=== PATIENT | female | born 1985 ===

== ENCOUNTER → 2020-11-23 | Outpatient (CLI) | payer OTHER | END | disposition home or self-care (01) | LOC: PRENATAL 09:00 | PROVIDERS: ATTEND Obstetrics & Gynecology Maternal & Fetal Medicine | DX: Z36.89 Encounter for other specified antenatal screening (principal); O36.80X1 Pregnancy with inconclusive fetal viability, fetus 1; Z3A.09 9 weeks gestation of pregnancy ==

== ENCOUNTER 2023-01-23 09:38 | Outpatient (CLI) | payer OTHER | END 2023-01-23 09:49 | disposition home or self-care (01) | LOC: SONOGRAMA 09:38 | PROVIDERS: ATTEND Specialist | DX: Q89.9 Congenital malformation, unspecified (principal) ==

== ENCOUNTER 2025-01-20 09:19 | Outpatient (CLI) | payer OTHER | END 2025-01-20 09:30 | disposition home or self-care (01) | LOC: SONOGRAMA 09:19 | PROVIDERS: ATTEND Specialist | DX: N84.0 Polyp of corpus uteri (principal) ==